=== PATIENT | male | born 2005 | race African-American/Black ===

== ENCOUNTER 2023-04-24 10:43 | Emergency (ER) | payer OTHER, SELFPAY ==
--- NOTE | ~2023-04-24 | XR_ITS ---
EXAMINATION: XR abdomen obstructive series DATE: 04/24/2023 11:36 INDICATION: Left lower quadrant abdominal pain TECHNIQUE: Frontal supine and upright views of the abdomen were obtained. COMPARISON: None. FINDINGS: Small amount of gas in the stomach. Small amount of stool at the sigmoid colon. Small amount of gas w ithin a couple loops of bowel in the right lower quadrant. No dilated gas-filled loops of bowel to soto ggest obstruction. No free intraperitoneal gas. Psoas shadows are normal. No suspicious calcification s in the abdomen or pelvis. Visualized lung bases are clear. Heart size is normal. Bones are unremark able. IMPRESSION: 1. No free intraperitoneal gas or dilated gas-filled loops of bowel to suggest obstruction. Reviewed, dictated and finalized at location A.
[2023-04-24 10:56] VITALS: BP 123/69; PULSE 67; RESP 16; TEMP 36.2; O2SAT 100
--- NOTE | 2023-04-24 11:09 | ED.ABDPAIN ---
HPI - Abdominal Pain General Chief Complaint: Abdominal Pain Stated Complaint: Abdominal Pain Time Seen by Provider: 04/24/23 11:09 Source: patient Mode of arrival: ambulatory Limitations: no limitations History of Present Illness HPI narrative: 17-year-old male presents with complaint abdominal pain. States that he feels like he needs to have a bowel movement but is unable to go. Has not had a normal bowel movement in last 5-6 days. Has not taken any [id number] medications to treat constipation. Denies nausea vomiting diarrhea. Afebrile. No urinary symptoms. Patient also reports that he would like STD testing while he is here. Is not have any symptoms. All systems reviewed and negative except as noted above. Related Data Allergies Allergy/AdvReac Type Severity Reaction Status Date / Time No Known Allergies Allergy Verified 04/24/23 10:55 Review of Systems Review of Systems: CONSTITUTIONAL: Denies fever, chills, or sweats. EYES: Denies visual changes, redness, or discharge. ENT: Denies rhinorrhea, congestion, sore throat, or otalgia. CARDIOVASCULAR: Denies chest pain, palpitations, or edema. RESPIRATORY: Denies cough or dyspnea. GASTROINTESTINAL: Reports abdominal pain, constipation. Denies nausea, vomiting, or diarrhea. GENITOURINARY: Denies dysuria or hematuria. SKIN: Denies rash or itching. MUSCULOSKELETAL: Denies back pain, joint pain, or myalgia. NEUROLOGIC: Denies headache, numbness, or weakness. PSYCHIATRIC: Denies anxiety or depression. All other systems reviewed are negative, except as documented in HPI. PMFSH Comments At time of signature, agree with nursing past medical, surgical, social and family history. There is no relevant family history pertinent to the presenting complaint. Exam Narrative: GENERAL: This is a well-nourished, well-developed patient, in no apparent distress. HEAD: normocephalic, atraumatic. EYES: PERRL. Sclera clear/white. Vision is grossly intact. EARS: External ears normal NOSE: External nose normal NECK: Neck supple, non-tender without lymphadenopathy, masses or thyromegaly. CARDIOVASCULAR: Regular rate and rhythm without murmurs, gallops, or rubs. RESPIRATORY: Clear to auscultation. Breath sounds equal bilaterally. No wheezes, rales, or rhonchi. GASTROINTESTINAL: Abdomen soft, generalized tenderness on palpation, nondistended. Bowel sounds are active. No hepato-splenomegaly, or palpable masses. No guarding. SKIN: warm, Dry, intact with no suspicious lesions or rash, good texture and turgor. NEURO: awake, alert, and oriented to person, place and time. There were no obvious focal neurologic abnormalities. EXTREMITIES: No joint tenderness, effusion, or edema noted. Course Course Level of Care: Express Care Visit Vital Signs Vital signs: Vital Signs Temperature 36.2 C L 04/24/23 10:56 Pulse Rate 67 04/24/23 10:56 Respiratory Rate 16 04/24/23 10:56 Blood Pressure 123/69 04/24/23 10:56 Pulse Oximetry 100 04/24/23 10:56 Oxygen Delivery Room Air 04/24/23 10:56 Temperature 36.2 C L 04/24/23 10:56 Pulse Rate 67 04/24/23 10:56 Respiratory Rate 16 04/24/23 10:56 Blood Pressure 123/69 04/24/23 10:56 Pulse Oximetry 100 04/24/23 10:56 Oxygen Delivery Room Air 04/24/23 10:56 reviewed MDM - Abdominal Pain MDM Narrative Medical decision making narrative: discussed x-ray results with patient. Gas and small amount of stool noted. Will treat with simethicone and MiraLax. Recommend patient go to the ER for any worsening of him symptoms. Recommend he follow-up with his primary care physician for further evaluation of protein and blood in urine. Patient wants STD testing today but he does not have any symptoms. He does not want any antibiotics at this time to treat possible STDs. Patient is aware of diagnosis, understands and agrees to treatment plan. Anticipatory guidance given. Patient agrees to follow-up as
== END 2023-04-24 11:57 | disposition home or self-care (01) ==
PROVIDERS: Emergency Provider Nurse Practitioner Family
DX: K59.00 Constipation, unspecified (principal); R14.1 Gas pain; R80.9 Proteinuria, unspecified; A74.9 Chlamydial infection, unspecified
CPT/HCPCS: 74019; 81003; 87491; 87591; 87661; 99213; G0463